=== PATIENT | male | born 1950 | race Caucasian/White ===

== ENCOUNTER 2022-10-02 14:47 | Inpatient (IN) | payer MEDICARE, BC ==
[~2022-10-02] VITALS: Ht 182.9 cm; Wt 95.3 kg
[2022-10-02] MEDS ORDERED: IPRATROPIUM BROMIDE 0.5 MG/2.5 ML NEBU ONE ×2 (14:58→18:44)
[2022-10-02] MEDS ORDERED: ALBUTEROL SULFATE 2.5 MG/3 ML NEBU ONE ×2 (14:58→18:43)
[2022-10-02] MEDS ORDERED: IPRATROPIUM BROMIDE 0.5 MG/2.5 ML NEBU NEB ONE ×2 (15:00→18:45)
[2022-10-02] MEDS ORDERED: ALBUTEROL SULFATE 2.5 MG/3 ML NEBU NEB ONE ×2 (15:00→18:45)
[2022-10-02 15:03] VITALS: O2SAT 93
[2022-10-02 15:19] LABS: BASOPHILS # (AUTO) 0.1 K/UL (0.0-0.2); BASOPHILS % (AUTO) 0.8 % (0.0-2.0); DIFFERENTIAL COMMENT 0; EOSINOPHILS % (AUTO) 0.1 % (0.0-7.0); HEMATOCRIT 39.6 % (36.7-47.1); HEMOGLOBIN 13.2 g/dL (12.5-16.3); LYMPHOCYTES # (AUTO) 0.5 K/uL (0.8-4.8); LYMPHOCYTES % (AUTO) 5.5 % (20.5-51.5); MEAN CORPUSCULAR HEMOGLOBIN 33.1 uug (23.8-33.4); MEAN CORPUSCULAR HGB CONC 33 g/dL (32.5-36.3); MEAN CORPUSCULAR VOLUME 99.8 fL (73.0-96.2); MONOCYTES # (AUTO) 0.7 K/uL (0.1-1.30); MONOCYTES % (AUTO) 7.4 % (0.0-11.0); NEUTROPHILS # (AUTO) 8.1 K/uL (1.8-8.9); NEUTROPHILS % (AUTO) 86.2 % (38.5-71.5); PLATELET COUNT (AUTO) 111 K/uL (152-348); RED BLOOD CELL COUNT(AUTO) 3.97 MIL/uL (4.06-5.63); RED CELL DISTRIBUTION WIDTH 17.6 % (12.1-16.2); WHITE BLOOD COUNT (AUTO) 9.4 K/uL (3.6-10.2)
[2022-10-02] MEDS ORDERED: PANT40TA49 PO (15:28)
[2022-10-02 15:29] VITALS: O2SAT 95
[2022-10-02 15:32] LABS: CREATININE 1.3 mg/dL (0.6-1.3); POTASSIUM 3.4 mmol/L (3.5-5.1)
[2022-10-02] MEDS ORDERED: APIX2.5T PO (15:32)
[2022-10-02] MEDS ORDERED: FAMO40TA7 PO (15:34)
[2022-10-02] MEDS ORDERED: ESCI-9 PO (15:36)
[2022-10-02] MEDS ORDERED: LORA0.5T48 PO (15:37)
[2022-10-02] MEDS ORDERED: OLAN2.5T3 PO (15:38)
[2022-10-02 15:45] LABS: ALBUMIN 3.2 g/dL (3.4-5.0); BILIRUBIN,DIRECT 0.2 mg/dL (0.0-0.2); BILIRUBIN,TOTAL 0.5 mg/dL (0.2-1.0); TOTAL PROTEIN, SERUM 6.9 g/dL (6.4-8.2)
[2022-10-02 15:48] LABS: LACTIC ACID 4.2 mmol/L (0.4-2.0)
[2022-10-02] MEDS ORDERED: AZITHROMYCIN IV 500 MG in IV DEXTROSE 5% 250 ML IV ONE (16:00)
[2022-10-02] MEDS ORDERED: CEFTRIAXONE 1 G in IV DEXTROSE 5% 50 ML IV ONE (16:00)
[2022-10-02] MEDS ORDERED: IV NORMAL SALINE 250 ML IV ONE (16:19)
[2022-10-02] MEDS ORDERED: SWABABLE VALVE TRANSFER SET EA MC ONE (16:19)
[2022-10-02] MEDS ORDERED: IOHEXOL 350 100 ML INFUS..BTL ONE (16:19)
[2022-10-02] MEDS ORDERED: IV NORMAL SALINE 1000 ML BAG IV ONE (16:30)
[2022-10-02 16:56] LABS: *BILIRUBIN,URIN NEGATIVE (NEGATIVE); *BLOOD, URINE NEGATIVE (NEGATIVE); *CLARITY,URINE CLEAR (CLEAR); *COLOR,URINE YELLOW (YELLOW); *KETONES,URINE TRACE (NEGATIVE); *PROTEIN,URINE 1+ (NEGATIVE); *UROBILINOGEN,URINE 0.2 E.U./dl (NORMAL); LEUKOCYTE ESTERASE ,URINE NEGATIVE (NEGATIVE); NITRITE, URINE NEGATIVE (NEGATIVE); PH,URINE 5.5 (5.0-8.0); UGLUCOSE NEGATIVE (NEGATIVE)
[2022-10-02] MEDS ORDERED: REMEDY ESSENTIAL ZINC PASTE 113 GM TP PRN (17:00)
[2022-10-02] MEDS: AZITHROMYCIN IV 500 MG in IV DEXTROSE 5% 250 ML IV SCH (17:00)
[2022-10-02] MEDS ORDERED: CEFTRIAXONE 1 G in IV DEXTROSE 5% 50 ML IV SCH (17:00)
[2022-10-02] MEDS ORDERED: LORAZEPAM 0.5 MG TABLET PO PRN (17:00)
[2022-10-02] MEDS ORDERED: OLANZAPINE 2.5 MG TABLET PO PRN (17:00)
[2022-10-02] MEDS ORDERED: ACETAMINOPHEN 325 MG TABLET PO PRN (17:00)
[2022-10-02] MEDS ORDERED: MAGNESIUM HYDROXIDE 30 ML LIQUID UDC PO PRN (17:00)
[2022-10-02] MEDS ORDERED: ONDANSETRON 4 MG/2 ML VIAL IV PRN (17:00)
[2022-10-02] MEDS ORDERED: CEFTRIAXONE /D5W 50ML IVPB **ER PYXIS IV ONE (17:04)
[2022-10-02] MEDS ORDERED: methylPREDNISolone SOD SUCC 125 MG/2 ML VIAL IV ONE (17:30)
[2022-10-02] MEDS ORDERED: levoFLOXacin 750MG/D5W 150 ML IV ONE ×2 (18:30→19:49)
[2022-10-02] MEDS ORDERED: MEROPENEM 1 G in IV NORMAL SALINE 100 ML IV ONE (18:30)
[2022-10-02 18:45] VITALS: O2SAT 93
[2022-10-02 19:00] VITALS: O2SAT 98
[2022-10-02] MEDS ORDERED: methylPREDNISolone SOD SUCC 125 MG/2 ML VIAL ONE (19:26)
[2022-10-02] MEDS ORDERED: MEROPENEM 1GM/NS 100ML IVPB **ER PYXIS ONLY IV ONE (21:21)
[2022-10-02 22:10] VITALS: BP 137/74; TEMP 99.1; O2SAT 99
[2022-10-03] MEDS: IV NS 1000 ML 1,000 ML IV PRN (01:14)
[2022-10-03] MEDS ORDERED: methylPREDNISolone SOD SUCC 40 MG/ML VIAL IV SCH (02:00)
[2022-10-03 04:00] VITALS: BP 133/72; TEMP 97.8
[2022-10-03 07:31] LABS: BASOPHILS % (AUTO) 0.1 % (0.0-2.0); HEMATOCRIT 35.3 % (36.7-47.1); HEMOGLOBIN 11.9 g/dL (12.5-16.3); LYMPHOCYTES # (AUTO) 0.3 K/uL (0.8-4.8); LYMPHOCYTES % (AUTO) 2.2 % (20.5-51.5); MEAN CORPUSCULAR HEMOGLOBIN 33.2 uug (23.8-33.4); MEAN CORPUSCULAR HGB CONC 34 g/dL (32.5-36.3); MEAN CORPUSCULAR VOLUME 98.7 fL (73.0-96.2); MONOCYTES # (AUTO) 0.5 K/uL (0.1-1.30); MONOCYTES % (AUTO) 4.1 % (0.0-11.0); NEUTROPHILS % (AUTO) 93.6 % (38.5-71.5); PLATELET COUNT (AUTO) 115 K/uL (152-348); RED BLOOD CELL COUNT(AUTO) 3.58 MIL/uL (4.06-5.63); RED CELL DISTRIBUTION WIDTH 17.5 % (12.1-16.2); WHITE BLOOD COUNT (AUTO) 11.8 K/uL (3.6-10.2)
[2022-10-03 07:40] LABS: CALCIUM 8.6 mg/dL (8.5-10.1); MAGNESIUM 1.6 mg/dL (1.8-2.4); PHOSPHOROUS 1.9 mg/dL (2.5-4.9); POTASSIUM 3.9 mmol/L (3.5-5.1)
[2022-10-03 07:43] LABS: DIFFERENTIAL COMMENT 1
[2022-10-03] MEDS ORDERED: APIXABAN 2.5 MG TABLET PO SCH (09:00)
[2022-10-03] MEDS: PANTOPRAZOLE SODIUM 40 MG TABLET.DR PO SCH (09:18)
[2022-10-03] MEDS: ESCITALOPRAM OXALATE 10 MG TABLET PO SCH (09:18)
[2022-10-03] MEDS ORDERED: IPRATROPIUM/ALBUTEROL SULFATE 14.7 GM INHALER INH PRN (09:30)
[2022-10-03] MEDS ORDERED: POTASSIUM PHOSPHATE MM 15 MMOL in IV NORMAL SALINE 250 ML IV ONE (10:00)
[2022-10-03] MEDS: MAGNESIUM SULFATE/D5W 100 ML IV SCH ×2 (10:08→11:10)
[2022-10-03] MEDS ORDERED: ALBUTEROL SULFATE 2.5 MG/ 0.5 ML NEBU NEB PRN (10:30)
[2022-10-03] MEDS ORDERED: IPRATROPIUM BROMIDE 0.5 MG/2.5 ML NEBU NEB PRN (10:30)
[2022-10-03] MEDS ORDERED: APIX5TAB PO (10:33)
[2022-10-03] MEDS: APIXABAN 5 MG TABLET PO SCH ×2 (10:42→21:27)
[2022-10-03] MEDS ORDERED: ONDA8TAB65 PO (11:00)
[2022-10-03 11:24] VITALS: BP 115/63; TEMP 98.1; O2SAT 96
[2022-10-03] MEDS ORDERED: DICY20TA11 PO (11:28)
[2022-10-03 12:59] VITALS: O2SAT 96
[2022-10-03 15:44] VITALS: BP 128/68; TEMP 97.8; O2SAT 100
[2022-10-03] MEDS: AZITHROMYCIN IV 500 MG in IV DEXTROSE 5% 250 ML IV SCH (18:04)
[2022-10-03 20:49] VITALS: BP 124/74; TEMP 98.2; O2SAT 95
[2022-10-03] MEDS: FAMOTIDINE 20 MG TABLET PO SCH (21:26)
[2022-10-03] MEDS: methylPREDNISolone SOD SUCC 40 MG/ML VIAL IV SCH (21:26)
[2022-10-03] MEDS: CEFTRIAXONE 1 G in IV DEXTROSE 5% 50 ML IV SCH (21:26)
[2022-10-04] VITALS: BP 120/73; TEMP 98.1; O2SAT 94
[2022-10-04] MEDS: IV NS 1000 ML 1,000 ML IV PRN ×2 (01:24→16:45)
[2022-10-04 04:17] VITALS: O2SAT 97
[2022-10-04 04:49] VITALS: BP 123/77; TEMP 97.8; O2SAT 96
[2022-10-04] MEDS: PANTOPRAZOLE SODIUM 40 MG TABLET.DR PO SCH (06:07)
[2022-10-04 06:35] LABS: BASOPHILS % (AUTO) 0.1 % (0.0-2.0); HEMOGLOBIN 13.1 g/dL (12.5-16.3); LYMPHOCYTES # (AUTO) 0.8 K/uL (0.8-4.8); LYMPHOCYTES % (AUTO) 6.1 % (20.5-51.5); MEAN CORPUSCULAR HEMOGLOBIN 33.4 uug (23.8-33.4); MEAN CORPUSCULAR HGB CONC 34 g/dL (32.5-36.3); MEAN CORPUSCULAR VOLUME 99.7 fL (73.0-96.2); MONOCYTES # (AUTO) 0.9 K/uL (0.1-1.30); MONOCYTES % (AUTO) 7.4 % (0.0-11.0); NEUTROPHILS # (AUTO) 10.8 K/uL (1.8-8.9); NEUTROPHILS % (AUTO) 86.4 % (38.5-71.5); PLATELET COUNT (AUTO) 158 K/uL (152-348); RED BLOOD CELL COUNT(AUTO) 3.91 MIL/uL (4.06-5.63); RED CELL DISTRIBUTION WIDTH 17.1 % (12.1-16.2); WHITE BLOOD COUNT (AUTO) 12.5 K/uL (3.6-10.2)
[2022-10-04 06:51] LABS: CALCIUM 8.6 mg/dL (8.5-10.1); CREATININE 1.4 mg/dL (0.6-1.3); MAGNESIUM 2.2 mg/dL (1.8-2.4); PHOSPHOROUS 4.1 mg/dL (2.5-4.9); POTASSIUM 4.2 mmol/L (3.5-5.1)
[2022-10-04 06:53] LABS: DIFFERENTIAL COMMENT 1
[2022-10-04 07:24] LABS: LACTIC ACID 3.5 mmol/L (0.4-2.0)
[2022-10-04] MEDS: ESCITALOPRAM OXALATE 10 MG TABLET PO SCH (08:47)
[2022-10-04] MEDS: methylPREDNISolone SOD SUCC 40 MG/ML VIAL IV SCH ×2 (08:47→20:57)
[2022-10-04] MEDS: APIXABAN 5 MG TABLET PO SCH ×2 (09:07→20:55)
[2022-10-04 09:10] LABS: BILIRUBIN,DIRECT 0.1 mg/dL (0.0-0.2); BILIRUBIN,TOTAL 0.3 mg/dL (0.2-1.0)
[2022-10-04 11:19] VITALS: BP 120/75; TEMP 98.4; O2SAT 96
[2022-10-04 15:05] VITALS: BP 141/79; TEMP 98.4; O2SAT 99
[2022-10-04] MEDS: AZITHROMYCIN IV 500 MG in IV DEXTROSE 5% 250 ML IV SCH (16:45)
[2022-10-04 20:00] VITALS: BP 145/77; TEMP 97.9; O2SAT 98
[2022-10-04] MEDS: FAMOTIDINE 20 MG TABLET PO SCH (20:57)
[2022-10-04] MEDS: CEFTRIAXONE 1 G in IV DEXTROSE 5% 50 ML IV SCH (20:57)
[2022-10-05] VITALS (11 sets, daily range): BP systolic 130–142; BP diastolic 66–85; TEMP 97.6–98.7; O2SAT 93–98
[2022-10-05] MEDS: IV NS 1000 ML 1,000 ML IV PRN (04:54)
[2022-10-05] MEDS: PANTOPRAZOLE SODIUM 40 MG TABLET.DR PO SCH (06:30)
[2022-10-05 07:01] LABS: CALCIUM 8.6 mg/dL (8.5-10.1); MAGNESIUM 2.2 mg/dL (1.8-2.4); PHOSPHOROUS 3.6 mg/dL (2.5-4.9); POTASSIUM 4.4 mmol/L (3.5-5.1)
[2022-10-05 07:02] LABS: BASOPHILS % (AUTO) 0.1 % (0.0-2.0); EOSINOPHILS % (AUTO) 0.1 % (0.0-7.0); HEMATOCRIT 34.4 % (36.7-47.1); HEMOGLOBIN 11.8 g/dL (12.5-16.3); LYMPHOCYTES # (AUTO) 0.5 K/uL (0.8-4.8); LYMPHOCYTES % (AUTO) 6.6 % (20.5-51.5); MEAN CORPUSCULAR HEMOGLOBIN 33.7 uug (23.8-33.4); MEAN CORPUSCULAR HGB CONC 34 g/dL (32.5-36.3); MEAN CORPUSCULAR VOLUME 98.3 fL (73.0-96.2); MONOCYTES # (AUTO) 0.4 K/uL (0.1-1.30); MONOCYTES % (AUTO) 5.9 % (0.0-11.0); NEUTROPHILS # (AUTO) 6.6 K/uL (1.8-8.9); NEUTROPHILS % (AUTO) 87.3 % (38.5-71.5); PLATELET COUNT (AUTO) 149 K/uL (152-348); RED BLOOD CELL COUNT(AUTO) 3.49 MIL/uL (4.06-5.63); RED CELL DISTRIBUTION WIDTH 16.2 % (12.1-16.2); WHITE BLOOD COUNT (AUTO) 7.5 K/uL (3.6-10.2)
[2022-10-05 07:04] LABS: ALBUMIN 2.8 g/dL (3.4-5.0); BILIRUBIN,DIRECT 0.1 mg/dL (0.0-0.2); BILIRUBIN,TOTAL 0.3 mg/dL (0.2-1.0); C-REACTIVE PROTEIN 4.5 mg/dL (0.0-0.9); TOTAL PROTEIN, SERUM 6.5 g/dL (6.4-8.2)
[2022-10-05 07:10] LABS: DIFFERENTIAL COMMENT 1
[2022-10-05 07:47] LABS: HIV-1 p24 ANTIGEN NON REACTIVE (NONREACTIVE); HIV-1/2 ANTIBODY NON REACTIVE (NONREACTIVE)
[2022-10-05] MEDS: methylPREDNISolone SOD SUCC 40 MG/ML VIAL IV SCH ×2 (09:39→20:51)
[2022-10-05] MEDS: ESCITALOPRAM OXALATE 10 MG TABLET PO SCH (09:40)
[2022-10-05] MEDS: APIXABAN 5 MG TABLET PO SCH ×2 (09:40→21:24)
[2022-10-05] MEDS: AZITHROMYCIN IV 500 MG in IV DEXTROSE 5% 250 ML IV SCH (18:16)
[2022-10-05] MEDS: CEFTRIAXONE 1 G in IV DEXTROSE 5% 50 ML IV SCH (20:44)
[2022-10-05] MEDS: FAMOTIDINE 20 MG TABLET PO SCH (20:52)
[2022-10-06 04:00] VITALS: BP 134/80; TEMP 97.8; O2SAT 94
[2022-10-06] MEDS: PANTOPRAZOLE SODIUM 40 MG TABLET.DR PO SCH (06:04)
[2022-10-06 07:00] LABS: HEMATOCRIT 34.7 % (36.7-47.1); LYMPHOCYTES # (AUTO) 0.5 K/uL (0.8-4.8); LYMPHOCYTES % (AUTO) 7.4 % (20.5-51.5); MEAN CORPUSCULAR HEMOGLOBIN 33.9 uug (23.8-33.4); MEAN CORPUSCULAR HGB CONC 35 g/dL (32.5-36.3); MEAN CORPUSCULAR VOLUME 97.7 fL (73.0-96.2); MONOCYTES # (AUTO) 0.7 K/uL (0.1-1.30); MONOCYTES % (AUTO) 10.9 % (0.0-11.0); NEUTROPHILS # (AUTO) 5.4 K/uL (1.8-8.9); NEUTROPHILS % (AUTO) 81.7 % (38.5-71.5); PLATELET COUNT (AUTO) 162 K/uL (152-348); RED BLOOD CELL COUNT(AUTO) 3.55 MIL/uL (4.06-5.63); RED CELL DISTRIBUTION WIDTH 16.4 % (12.1-16.2); WHITE BLOOD COUNT (AUTO) 6.7 K/uL (3.6-10.2)
[2022-10-06 07:18] LABS: DIFFERENTIAL COMMENT 1
[2022-10-06 07:19] LABS: CALCIUM 8.6 mg/dL (8.5-10.1); CREATININE 0.9 mg/dL (0.6-1.3); MAGNESIUM 2.1 mg/dL (1.8-2.4); PHOSPHOROUS 3.8 mg/dL (2.5-4.9); POTASSIUM 4.1 mmol/L (3.5-5.1)
[2022-10-06 08:00] VITALS: BP 147/88; TEMP 97.9; O2SAT 93
[2022-10-06] MEDS: ESCITALOPRAM OXALATE 10 MG TABLET PO SCH (08:39)
[2022-10-06] MEDS: methylPREDNISolone SOD SUCC 40 MG/ML VIAL IV SCH ×2 (08:39→20:45)
[2022-10-06] MEDS: APIXABAN 5 MG TABLET PO SCH ×2 (08:40→21:24)
[2022-10-06 13:00] VITALS: BP 152/84; TEMP 98.2; O2SAT 94
[2022-10-06 14:40] VITALS: O2SAT 94
[2022-10-06 16:00] VITALS: BP 149/88; TEMP 98.8; O2SAT 96
[2022-10-06] MEDS: AZITHROMYCIN IV 500 MG in IV DEXTROSE 5% 250 ML IV SCH (16:43)
[2022-10-06] MEDS: CEFTRIAXONE 1 G in IV DEXTROSE 5% 50 ML IV SCH (20:43)
[2022-10-06] MEDS: FAMOTIDINE 20 MG TABLET PO SCH (20:45)
[2022-10-06 20:50] VITALS: BP 145/85; TEMP 98.7; O2SAT 95
[2022-10-07 02:25] VITALS: O2SAT 94
[2022-10-07 05:44] VITALS: BP 142/83; TEMP 97.7; O2SAT 100
[2022-10-07 08:20] VITALS: BP 131/83; TEMP 97.4; O2SAT 92
[2022-10-07] MEDS: methylPREDNISolone SOD SUCC 40 MG/ML VIAL IV SCH (08:37)
[2022-10-07] MEDS: ESCITALOPRAM OXALATE 10 MG TABLET PO SCH (08:37)
[2022-10-07] MEDS: APIXABAN 5 MG TABLET PO SCH (08:38)
[2022-10-07 12:00] VITALS: BP 125/83; TEMP 98.5; O2SAT 92
[2022-10-07] MEDS ORDERED: SULF1TAB48 PO (12:44)
[2022-10-07] MEDS ORDERED: PRED20TA PO (12:49)
[2022-10-07] MEDS ORDERED: ALBU18HF2 INH (12:49)
[2022-10-07] MEDS ORDERED: SULFAMETH/TRIMETH 800/160 MG TABLET PO ONE (13:00)
[2022-10-08] MEDS ORDERED: methylPREDNISolone SOD SUCC 40 MG/ML VIAL IV SCH (09:00)
== END 2022-10-07 15:30 | disposition home or self-care (01) | DRG 871 ==
LOC: ER 14:47 → TELE3 17:04 → MEDSURG3 10-04 12:02
PROVIDERS: ADMIT Nurse Practitioner Acute Care; ATTEND Nurse Practitioner Acute Care
DX: A41.9 Sepsis, unspecified organism (principal); J15.9 Unspecified bacterial pneumonia; J96.01 Acute respiratory failure with hypoxia; C15.9 Malignant neoplasm of esophagus, unspecified; E44.1 Mild protein-calorie malnutrition; J90 Pleural effusion, not elsewhere classified; E87.20 Acidosis, unspecified; N39.0 Urinary tract infection, site not specified; Z16.19 Resistance to other specified beta lactam antibiotics; Z16.24 Resistance to multiple antibiotics; J98.11 Atelectasis; N17.9 Acute kidney failure, unspecified; Z79.01 Long term (current) use of anticoagulants; Z79.899 Other long term (current) drug therapy; K21.9 Gastro-esophageal reflux disease without esophagitis; Z86.711 Personal history of pulmonary embolism; Z90.49 Acquired absence of other specified parts of digestive tract; E87.6 Hypokalemia; D64.9 Anemia, unspecified; E88.09 Other disorders of plasma-protein metabolism, not elsewhere classified; R00.0 Tachycardia, unspecified; J45.909 Unspecified asthma, uncomplicated; B96.20 Unspecified Escherichia coli [E. coli] as the cause of diseases classified elsewhere; Z20.822 Contact with and (suspected) exposure to COVID-19; K22.89 Other specified disease of esophagus; Z87.891 Personal history of nicotine dependence; Z92.21 Personal history of antineoplastic chemotherapy; Z82.49 Family history of ischemic heart disease and other diseases of the circulatory system; T50.8X5A Adverse effect of diagnostic agents, initial encounter; Y92.238 Other place in hospital as the place of occurrence of the external cause
CPT/HCPCS: 36415; 71045; 71275; 83605; 83735; 84100; 85025; 86140; 86803; 87040; 87806; 93005; 94640; G0378; J0456; J0696; J1956; J2185; J2920; J2930; J3475; J3490; J3590; J7040; J7050; Q9967

== ENCOUNTER 2023-07-12 16:23 | Inpatient (IN) | payer MEDICARE, BC ==
[~2023-07-12] VITALS: Ht 182.9 cm; Wt 85.4 kg
[~2023-07-12 16:23] MED LIST: ALBU18HF2 INH; APIX5TAB PO; DICY20TA11 PO; ESCI-9 PO; FAMO40TA7 PO; LORA0.5T48 PO; OLAN2.5T3 PO; ONDA8TAB65 PO; PANT40TA49 PO; PRED20TA PO; SULF1TAB48 PO
[2023-07-12] MEDS ORDERED: methylPREDNISolone SOD SUCC 125 MG/2 ML VIAL IV ONE (16:45)
[2023-07-12] MEDS ORDERED: TAMS-3 PO (16:46)
[2023-07-12] MEDS ORDERED: ALPR0.255 PO ×2 (16:46→20:10)
[2023-07-12] MEDS ORDERED: BUPR150T10 (16:46)
[2023-07-12] MEDS ORDERED: ONDA4TAB11 SL (16:46)
[2023-07-12] MEDS ORDERED: GABA-532 PO (16:46)
[2023-07-12] MEDS: ALBUTEROL SULFATE 2.5 MG/3 ML NEBU NEB ONE (16:59)
[2023-07-12] MEDS: IPRATROPIUM BROMIDE 0.5 MG/2.5 ML NEBU NEB ONE (16:59)
[2023-07-12] MEDS ORDERED: IPRATROPIUM BROMIDE 0.5 MG/2.5 ML NEBU ONE (17:02)
[2023-07-12] MEDS ORDERED: ALBUTEROL SULFATE 2.5 MG/3 ML NEBU ONE (17:02)
[2023-07-12 17:20] VITALS: O2SAT 97
[2023-07-12 17:22] LABS: BASOPHILS % (AUTO) 0.2 % (0.0-2.0); EOSINOPHILS % (AUTO) 0.2 % (0.0-7.0); HEMATOCRIT 35.2 % (36.7-47.1); HEMOGLOBIN 11.5 g/dL (12.5-16.3); LYMPHOCYTES # (AUTO) 0.3 K/uL (0.8-4.8); LYMPHOCYTES % (AUTO) 1.9 % (20.5-51.5); MEAN CORPUSCULAR HEMOGLOBIN 25.4 uug (23.8-33.4); MEAN CORPUSCULAR HGB CONC 33 g/dL (32.5-36.3); MEAN CORPUSCULAR VOLUME 77.6 fL (73.0-96.2); MONOCYTES # (AUTO) 0.2 K/uL (0.1-1.30); MONOCYTES % (AUTO) 1.7 % (0.0-11.0); NEUTROPHILS # (AUTO) 13.3 K/uL (1.8-8.9); PLATELET COUNT (AUTO) 327 K/uL (152-348); RED BLOOD CELL COUNT(AUTO) 4.53 MIL/uL (4.06-5.63); RED CELL DISTRIBUTION WIDTH 16.7 % (12.1-16.2); WHITE BLOOD COUNT (AUTO) 13.8 K/uL (3.6-10.2)
[2023-07-12] MEDS ORDERED: ONDANSETRON 4 MG/2 ML VIAL ONE (17:23)
[2023-07-12] MEDS ORDERED: MAGNESIUM SULFATE 1 GM/2 ML VIAL ONE (17:24)
[2023-07-12] MEDS ORDERED: MAGNESIUM SULFATE/D5W 100 ML ONE (17:24)
[2023-07-12 17:25] LABS: DIFFERENTIAL COMMENT 1
[2023-07-12 17:31] LABS: CALCIUM 9.6 mg/dL (8.5-10.1); CARBON DIOXIDE 26 mmol/L (21-32); CHLORIDE 96 mmol/L (98-107); CREATININE 1.8 mg/dL (0.6-1.3); GLUCOSE 316 mg/dL (74-106); POTASSIUM 3.7 mmol/L (3.5-5.1); SODIUM SERUM 135 mmol/L (136-145); UREA NITROGEN, BLOOD 30 mg/dL (7-18)
[2023-07-12] MEDS: MAGNESIUM SULFATE 2 GM in IV DEXTROSE 5% 100 ML IV ONE (17:42)
[2023-07-12] MEDS: ONDANSETRON INJ 8 MG in IV NORMAL SALINE 50 ML IV PRN (17:43)
[2023-07-12] MEDS: IV NS 1000 ML 1,000 ML IV ONE (17:43)
[2023-07-12 17:45] LABS: ALANINE AMINOTRANSFERASE 22 U/L (16-63); ALBUMIN 2.5 g/dL (3.4-5.0); ALKALINE PHOSPHATASE 264 U/L (50-136); ASPARTATE AMINOTRANSFERASE 23 U/L (15-37); BILIRUBIN,DIRECT 0.8 mg/dL (0.0-0.2); BILIRUBIN,TOTAL 1.2 mg/dL (0.2-1.0); NT-PRO BNP 448 pg/mL (0-125); TOTAL PROTEIN, SERUM 7.7 g/dL (6.4-8.2)
[2023-07-12 17:55] LABS: LACTIC ACID 3.3 mmol/L (0.4-2.0)
[2023-07-12 18:00] VITALS: O2SAT 100; O2SAT 98
[2023-07-12] MEDS: VANCOMYCIN IV 1,000 MG in IV DEXTROSE 5% 250 ML IV ONE (18:00)
[2023-07-12] MEDS ORDERED: PIPERACILLIN/TAZO 4.5 GM VIAL IV ONE (18:15)
[2023-07-12] MEDS: PIPERACILLIN SODIUM/TAZOBACTAM 4.5 G in IV DEXTROSE 5% 50 ML IV SCH (18:27)
[2023-07-12] MEDS ORDERED: REMEDY ESSENTIAL ZINC PASTE 113 GM TP PRN (19:15)
[2023-07-12] MEDS: ENOXAPARIN SODIUM 80 MG/0.8 ML DISP.SYRIN SQ ONE ×2 (19:15→23:56)
[2023-07-12] MEDS ORDERED: IPRATROPIUM BROMIDE 0.5 MG/2.5 ML NEBU NEB PRN (19:15)
[2023-07-12] MEDS ORDERED: ALBUTEROL SULFATE 2.5 MG/3 ML NEBU NEB PRN (19:15)
[2023-07-12] MEDS ORDERED: ACETAMINOPHEN 325 MG TABLET PO PRN (19:15)
[2023-07-12] MEDS ORDERED: NOREPINEPHRINE BITARTRATE 4 MG/4 ML VIAL IV ONE (19:47)
[2023-07-12] MEDS: NOREPINEPHRINE BITARTRATE 8 MG in IV NORMAL SALINE 242 ML IV PRN (19:51)
[2023-07-12] MEDS ORDERED: BUPR-96 PO (20:10)
[2023-07-12] MEDS ORDERED: ESCI20TA PO (20:10)
[2023-07-12 21:55] VITALS: O2SAT 98
[2023-07-12 22:13] VITALS: BP 92/57; TEMP 98; O2SAT 99
[2023-07-12] MEDS ORDERED: DEXTROSE 50% 50 ML DISP.SYRIN IV PRN (22:45)
[2023-07-12] MEDS: NOREPINEPHRINE BITARTRATE 4 MG/4 ML VIAL IV ONE (22:53)
[2023-07-12 23:00] VITALS: BP 106/63; O2SAT 99
[2023-07-12] MEDS ORDERED: MEROPENEM 1GM/NS 100ML IVPB **ER PYXIS ONLY IV ONE (23:03)
[2023-07-12] MEDS ORDERED: INSULIN REGULAR, HUMAN 300 UNIT/3 ML VIAL ONE (23:04)
[2023-07-12] MEDS: IV NS 1000 ML 1,000 ML IV PRN (23:04)
[2023-07-12] MEDS: MEROPENEM 1 G in IV NORMAL SALINE 100 ML IV SCH (23:15)
[2023-07-12] MEDS: INSULIN REGULAR, HUMAN 300 UNIT/3 ML VIAL SQ PRN (23:18)
[2023-07-12] MEDS: HYDROCORTISONE SOD SUCCINATE 100 MG/2 ML VIAL IV SCH (23:40)
[2023-07-13] VITALS (89 sets, daily range): BP systolic 68–167; BP diastolic 49–107; TEMP 97.5–99; O2SAT 95–100
[2023-07-13] MEDS ORDERED: VANCOMYCIN IV 200 ML ONE (00:02)
[2023-07-13] MEDS: BLOOD SUGAR DIAGNOSTIC 1 EACH STRIP VI SCH ×3 (00:03→11:56)
[2023-07-13] MEDS: VANCOMYCIN IV 1,000 MG in IV NORMAL SALINE 250 ML IV ONE (00:08)
[2023-07-13] MEDS: NOREPINEPHRINE BITARTRATE 8 MG in IV NORMAL SALINE 242 ML IV PRN (00:33)
[2023-07-13] MEDS: NOREPINEPHRINE BITARTRATE 4 MG/4 ML VIAL IV ONE ×2 (01:45→05:19)
[2023-07-13] MEDS: INSULIN REGULAR, HUMAN 300 UNIT/3 ML VIAL SQ ONE (01:52)
[2023-07-13] MEDS ORDERED: DEXTROSE 50% 50 ML DISP.SYRIN IV PRN ×2 (05:00→10:45)
[2023-07-13 05:19] LABS: BASOPHILS % (AUTO) 0.2 % (0.0-2.0); HEMOGLOBIN 10.4 g/dL (12.5-16.3); LYMPHOCYTES # (AUTO) 0.2 K/uL (0.8-4.8); LYMPHOCYTES % (AUTO) 0.7 % (20.5-51.5); MEAN CORPUSCULAR HEMOGLOBIN 25.2 uug (23.8-33.4); MEAN CORPUSCULAR HGB CONC 32 g/dL (32.5-36.3); MEAN CORPUSCULAR VOLUME 80.2 fL (73.0-96.2); MONOCYTES # (AUTO) 0.7 K/uL (0.1-1.30); MONOCYTES % (AUTO) 2.8 % (0.0-11.0); NEUTROPHILS # (AUTO) 25.8 K/uL (1.8-8.9); NEUTROPHILS % (AUTO) 96.3 % (38.5-71.5); PLATELET COUNT (AUTO) 485 K/uL (152-348); RED BLOOD CELL COUNT(AUTO) 4.12 MIL/uL (4.06-5.63); RED CELL DISTRIBUTION WIDTH 16.9 % (12.1-16.2); WHITE BLOOD COUNT (AUTO) 26.7 K/uL (3.6-10.2)
[2023-07-13] MEDS: INSULIN REGULAR, HUMAN 300 UNIT/3 ML VIAL SQ PRN ×2 (05:21→12:02)
[2023-07-13 05:34] LABS: DIFFERENTIAL COMMENT 1
[2023-07-13 05:54] LABS: THYROID STIMULATING HORMONE 3.216 mIU/mL (0.358-3.740)
[2023-07-13 06:02] LABS: CALCIUM 8.2 mg/dL (8.5-10.1); CREATININE 1.8 mg/dL (0.6-1.3); MAGNESIUM 2.1 mg/dL (1.8-2.4); PHOSPHOROUS 3.4 mg/dL (2.5-4.9); POTASSIUM 4.7 mmol/L (3.5-5.1)
[2023-07-13] MEDS ORDERED: INSULIN REGULAR, HUMAN 300 UNIT/3 ML VIAL SQ SCH (07:30)
[2023-07-13] MEDS: PANTOPRAZOLE SODIUM 40 MG TABLET.DR PO SCH (07:36)
[2023-07-13] MEDS: APIXABAN 5 MG TABLET PO SCH (09:22)
[2023-07-13] MEDS: MEROPENEM 1 G in IV NORMAL SALINE 100 ML IV SCH (11:13)
[2023-07-13 11:24] LABS: *BILIRUBIN,URIN NEGATIVE (NEGATIVE); *BLOOD, URINE NEGATIVE (NEGATIVE); *CLARITY,URINE CLEAR (CLEAR); *COLOR,URINE YELLOW (YELLOW); *KETONES,URINE NEGATIVE (NEGATIVE); *PROTEIN,URINE TRACE (NEGATIVE); *UROBILINOGEN,URINE 0.2 E.U./dl (NORMAL); LEUKOCYTE ESTERASE ,URINE NEGATIVE (NEGATIVE); NITRITE, URINE NEGATIVE (NEGATIVE); PH,URINE 5.5 (5.0-8.0); UGLUCOSE 2+ (NEGATIVE)
[2023-07-13 11:50] LABS: BACTERIA,URINE NONE SEEN /HPF (NONE SEEN); RBC,URINE NONE SEEN /HPF (0-3); SQUAMOUS EPITHELIAL CELL,UR FEW /HPF (NONE SEEN); WBC,URINE 0-3 /HPF (0-3)
[2023-07-13] MEDS: VANCOMYCIN IV 1,250 MG in IV DEXTROSE 5% 250 ML IV SCH (12:03)
[2023-07-13] MEDS ORDERED: [UNRECOGNIZED DRUG - OTHER] GT PRN (12:15)
[2023-07-13] MEDS ORDERED: Medication Not On Formulary EA (Escitalopram Oxalate (Lexapro) 20 MG) PO SCH (13:00)
[2023-07-13] MEDS ORDERED: ALPRAZOLAM 0.25 MG TABLET PO PRN (13:00)
[2023-07-13] MEDS: buPROPion XL 150 MG TAB.SR.24H PO SCH (13:04)
[2023-07-13] MEDS: ESCITALOPRAM OXALATE 10 MG TABLET PO SCH (13:04)
[2023-07-13] MEDS: HYDROCORTISONE SOD SUCCINATE 100 MG/2 ML VIAL IV SCH (13:31)
[2023-07-13] MEDS: ONDANSETRON 4 MG/2 ML VIAL IV PRN (15:55)
[2023-07-13] MEDS: IBUPROFEN 200 MG TABLET PO PRN (16:28)
[2023-07-13 17:56] LABS: *CREATININE,URINE 40.1 mg/dL (30-125); *URINE TOTAL PROTEIN RANDOM 33.2 mg/dL (<150/24HR)
[2023-07-13] MEDS: ONDANSETRON HCL 4 MG TABLET PO SCH (19:59)
[2023-07-13] MEDS: DOXYCYCLINE HYCLATE IV 100 MG in IV DEXTROSE 5% 100 ML IV SCH (20:27)
[2023-07-13] MEDS: FAMOTIDINE 20 MG TABLET PO SCH (22:41)
[2023-07-13] MEDS: TAMSULOSIN HCL 0.4 MG CAP.SR.24H PO SCH (22:41)
[2023-07-13] MEDS: IBUPROFEN 400 MG TABLET PO PRN (23:16)
[2023-07-14] VITALS (58 sets, daily range): BP systolic 85–117; BP diastolic 52–76; TEMP 97.7–98.7; O2SAT 94–99
[2023-07-14 05:41] LABS: BASOPHILS % (AUTO) 0.1 % (0.0-2.0); HEMATOCRIT 26.2 % (36.7-47.1); HEMOGLOBIN 8.4 g/dL (12.5-16.3); LYMPHOCYTES # (AUTO) 0.6 K/uL (0.8-4.8); MEAN CORPUSCULAR HEMOGLOBIN 25.1 uug (23.8-33.4); MEAN CORPUSCULAR HGB CONC 32 g/dL (32.5-36.3); MEAN CORPUSCULAR VOLUME 77.9 fL (73.0-96.2); MONOCYTES # (AUTO) 0.9 K/uL (0.1-1.30); MONOCYTES % (AUTO) 5.7 % (0.0-11.0); NEUTROPHILS # (AUTO) 14.3 K/uL (1.8-8.9); NEUTROPHILS % (AUTO) 90.2 % (38.5-71.5); PLATELET COUNT (AUTO) 318 K/uL (152-348); RED BLOOD CELL COUNT(AUTO) 3.37 MIL/uL (4.06-5.63); RED CELL DISTRIBUTION WIDTH 16.9 % (12.1-16.2); WHITE BLOOD COUNT (AUTO) 15.9 K/uL (3.6-10.2)
[2023-07-14 06:04] LABS: ALBUMIN 1.6 g/dL (3.4-5.0); BILIRUBIN,TOTAL 0.3 mg/dL (0.2-1.0); CALCIUM 7.9 mg/dL (8.5-10.1); CREATININE 0.9 mg/dL (0.6-1.3); PHOSPHOROUS 1.7 mg/dL (2.5-4.9); POTASSIUM 4.1 mmol/L (3.5-5.1); TOTAL PROTEIN, SERUM 5.8 g/dL (6.4-8.2)
[2023-07-14 07:07] LABS: DIFFERENTIAL COMMENT 1
[2023-07-14] MEDS ORDERED: METOPROLOL TARTRATE 5 MG/5 ML VIAL IVP PRN (14:00)
[2023-07-14] MEDS ORDERED: OLANZAPINE 10 MG VIAL IM ONE (14:00)
[2023-07-14] MEDS: MEROPENEM 1 G in IV NORMAL SALINE 100 ML IV SCH (14:04)
[2023-07-14] MEDS: NEUTRA PHOS PACKET PO ONE (15:43)
[2023-07-14] MEDS: FAMOTIDINE 20 MG TABLET PO SCH (20:22)
[2023-07-15] VITALS (20 sets, daily range): BP systolic 109–137; BP diastolic 61–117; TEMP 97.4–98.3; O2SAT 95–98
[2023-07-15 05:31] LABS: BASOPHILS % (AUTO) 0.2 % (0.0-2.0); HEMATOCRIT 25.9 % (36.7-47.1); HEMOGLOBIN 8.4 g/dL (12.5-16.3); LYMPHOCYTES # (AUTO) 0.7 K/uL (0.8-4.8); LYMPHOCYTES % (AUTO) 6.7 % (20.5-51.5); MEAN CORPUSCULAR HEMOGLOBIN 25.3 uug (23.8-33.4); MEAN CORPUSCULAR HGB CONC 33 g/dL (32.5-36.3); MEAN CORPUSCULAR VOLUME 77.7 fL (73.0-96.2); MONOCYTES # (AUTO) 0.5 K/uL (0.1-1.30); MONOCYTES % (AUTO) 4.4 % (0.0-11.0); NEUTROPHILS # (AUTO) 9.6 K/uL (1.8-8.9); NEUTROPHILS % (AUTO) 88.7 % (38.5-71.5); PLATELET COUNT (AUTO) 310 K/uL (152-348); RED BLOOD CELL COUNT(AUTO) 3.33 MIL/uL (4.06-5.63); RED CELL DISTRIBUTION WIDTH 16.8 % (12.1-16.2); WHITE BLOOD COUNT (AUTO) 10.8 K/uL (3.6-10.2)
[2023-07-15 05:46] LABS: BILIRUBIN,TOTAL 0.2 mg/dL (0.2-1.0); CALCIUM 8.1 mg/dL (8.5-10.1); CREATININE 0.7 mg/dL (0.6-1.3); MAGNESIUM 1.8 mg/dL (1.8-2.4); PHOSPHOROUS 1.9 mg/dL (2.5-4.9); TOTAL PROTEIN, SERUM 5.6 g/dL (6.4-8.2)
[2023-07-15 06:07] LABS: ALBUMIN 1.5 g/dL (3.4-5.0)
[2023-07-15 06:11] LABS: DIFFERENTIAL COMMENT 1
[2023-07-15] MEDS: VANCOMYCIN IV 1,250 MG in IV DEXTROSE 5% 250 ML IV SCH (07:14)
[2023-07-15 08:06] LABS: PTH, INTACT 17 pg/mL (15-65)
[2023-07-15] MEDS: NEUTRA PHOS PACKET GT ONE (16:37)
[2023-07-16] VITALS (7 sets, daily range): BP systolic 128–147; BP diastolic 62–86; TEMP 97.2–98.6; O2SAT 96–99
[2023-07-16 07:17] LABS: BASOPHILS # (AUTO) 0.2 K/UL (0.0-0.2); BASOPHILS % (AUTO) 2.1 % (0.0-2.0); EOSINOPHILS % (AUTO) 0.4 % (0.0-7.0); HEMATOCRIT 28.4 % (36.7-47.1); HEMOGLOBIN 9.4 g/dL (12.5-16.3); LYMPHOCYTES # (AUTO) 0.6 K/uL (0.8-4.8); LYMPHOCYTES % (AUTO) 6.6 % (20.5-51.5); MEAN CORPUSCULAR HEMOGLOBIN 25.5 uug (23.8-33.4); MEAN CORPUSCULAR HGB CONC 33 g/dL (32.5-36.3); MEAN CORPUSCULAR VOLUME 77.3 fL (73.0-96.2); MONOCYTES # (AUTO) 0.5 K/uL (0.1-1.30); MONOCYTES % (AUTO) 6.3 % (0.0-11.0); NEUTROPHILS # (AUTO) 7.2 K/uL (1.8-8.9); NEUTROPHILS % (AUTO) 84.6 % (38.5-71.5); PLATELET COUNT (AUTO) 313 K/uL (152-348); RED BLOOD CELL COUNT(AUTO) 3.67 MIL/uL (4.06-5.63); RED CELL DISTRIBUTION WIDTH 16.4 % (12.1-16.2); WHITE BLOOD COUNT (AUTO) 8.5 K/uL (3.6-10.2)
[2023-07-16 07:27] LABS: DIFFERENTIAL COMMENT 1
[2023-07-16 07:29] LABS: ALBUMIN 1.7 g/dL (3.4-5.0); BILIRUBIN,TOTAL 0.3 mg/dL (0.2-1.0); CALCIUM 8.3 mg/dL (8.5-10.1); CREATININE 0.7 mg/dL (0.6-1.3); MAGNESIUM 1.7 mg/dL (1.8-2.4); PHOSPHOROUS 2.6 mg/dL (2.5-4.9); TOTAL PROTEIN, SERUM 5.8 g/dL (6.4-8.2)
[2023-07-16] MEDS: MAGNESIUM SULFATE/D5W 100 ML IV SCH (12:23)
[2023-07-16] MEDS: HYDROCORTISONE SOD SUCCINATE 100 MG/2 ML VIAL IV SCH (20:32)
[2023-07-17 00:06] VITALS: BP 136/78; TEMP 97.9; O2SAT 96
[2023-07-17 05:10] VITALS: BP 149/86; TEMP 97.9; O2SAT 96
[2023-07-17 05:38] LABS: *OCCULT BLOOD STOOL POSITIVE (NEGATIVE)
[2023-07-17 07:38] LABS: BASOPHILS % (AUTO) 0.2 % (0.0-2.0); EOSINOPHILS % (AUTO) 0.2 % (0.0-7.0); HEMATOCRIT 27.7 % (36.7-47.1); HEMOGLOBIN 9.3 g/dL (12.5-16.3); LYMPHOCYTES % (AUTO) 12.3 % (20.5-51.5); MEAN CORPUSCULAR HEMOGLOBIN 25.7 uug (23.8-33.4); MEAN CORPUSCULAR HGB CONC 34 g/dL (32.5-36.3); MEAN CORPUSCULAR VOLUME 76.5 fL (73.0-96.2); MONOCYTES # (AUTO) 0.8 K/uL (0.1-1.30); MONOCYTES % (AUTO) 9.4 % (0.0-11.0); NEUTROPHILS # (AUTO) 6.4 K/uL (1.8-8.9); NEUTROPHILS % (AUTO) 77.9 % (38.5-71.5); PLATELET COUNT (AUTO) 353 K/uL (152-348); RED BLOOD CELL COUNT(AUTO) 3.62 MIL/uL (4.06-5.63); RED CELL DISTRIBUTION WIDTH 16.1 % (12.1-16.2); WHITE BLOOD COUNT (AUTO) 8.3 K/uL (3.6-10.2)
[2023-07-17 07:42] LABS: DIFFERENTIAL COMMENT 1
[2023-07-17 07:56] LABS: ALBUMIN 1.6 g/dL (3.4-5.0); BILIRUBIN,TOTAL 0.2 mg/dL (0.2-1.0); CREATININE 0.7 mg/dL (0.6-1.3); MAGNESIUM 1.9 mg/dL (1.8-2.4); PHOSPHOROUS 2.6 mg/dL (2.5-4.9); POTASSIUM 3.6 mmol/L (3.5-5.1); TOTAL PROTEIN, SERUM 5.6 g/dL (6.4-8.2)
[2023-07-17 08:05] VITALS: BP 130/77; TEMP 97.4; O2SAT 97
[2023-07-17 10:13] LABS: A/G RATIO 0.6 (0.7-1.7); ALBUMIN 1.9 g/dL (2.9-4.4); ALPHA-1-GLOBULIN 0.4 g/dL (0.0-0.4); ALPHA-2-GLOBULIN 0.9 g/dL (0.4-1.0); BETA GLOBULIN 0.9 g/dL (0.7-1.3); GAMMA GLOBULIN 0.8 g/dL (0.4-1.8); M-SPIKE Not Observed g/dL (Not Observed)
[2023-07-17] MEDS: FUROSEMIDE 20 MG/2 ML VIAL IV ONE (11:06)
[2023-07-17] MEDS: SOD FERRIC GLUC COMPLX/SUCROSE 125 MG in IV NORMAL SALINE 100 ML IV ONE (11:17)
[2023-07-17 12:06] VITALS: BP 142/77; TEMP 97.3; O2SAT 97
[2023-07-17 14:56] VITALS: BP 119/76; TEMP 97.5; O2SAT 96
[2023-07-17] MEDS ORDERED: DOXY100T2 PO (16:31)
[2023-07-17] MEDS ORDERED: APIX2.5T PO (16:31)
[2023-07-17] MEDS ORDERED: METH4TAB3 PO (16:31)
[2023-07-17] MEDS ORDERED: CEFTRIAXONE 1 G in IV DEXTROSE 5% 50 ML IV SCH (22:00)
[2023-07-18 03:12] LABS: HEPATITIS A AB, IgM Negative (Negative); HEPATITIS A AB, TOTAL Negative (Negative); HEPATITIS B CORE AB, IgM Negative (Negative); HEPATITIS B SURFACE AG Negative (Negative); HEPATITIS Be ANTIGEN Negative (Negative)
== END 2023-07-17 18:00 | disposition home health service (06) | DRG 871 ==
LOC: ER 16:24 → CCU 19:41 → TELE3 07-15 21:36
PROVIDERS: ADMIT Nurse Practitioner Family; ATTEND Nurse Practitioner Family
DX: A41.89 Other specified sepsis (principal); E43 Unspecified severe protein-calorie malnutrition; J18.9 Pneumonia, unspecified organism; R65.21 Severe sepsis with septic shock; J96.01 Acute respiratory failure with hypoxia; J69.0 Pneumonitis due to inhalation of food and vomit; N17.0 Acute kidney failure with tubular necrosis; G92.8 Other toxic encephalopathy; I50.31 Acute diastolic (congestive) heart failure; C78.02 Secondary malignant neoplasm of left lung; C78.01 Secondary malignant neoplasm of right lung; N39.0 Urinary tract infection, site not specified; C79.51 Secondary malignant neoplasm of bone; C79.70 Secondary malignant neoplasm of unspecified adrenal gland; E87.1 Hypo-osmolality and hyponatremia; E87.20 Acidosis, unspecified; R17 Unspecified jaundice; K92.2 Gastrointestinal hemorrhage, unspecified; J44.0 Chronic obstructive pulmonary disease with (acute) lower respiratory infection; Z85.01 Personal history of malignant neoplasm of esophagus; Z86.711 Personal history of pulmonary embolism; Z79.01 Long term (current) use of anticoagulants; Z90.49 Acquired absence of other specified parts of digestive tract; B96.89 Other specified bacterial agents as the cause of diseases classified elsewhere; E11.65 Type 2 diabetes mellitus with hyperglycemia; Z68.25 Body mass index [BMI] 25.0-25.9, adult; D50.9 Iron deficiency anemia, unspecified; N40.0 Benign prostatic hyperplasia without lower urinary tract symptoms; M89.8X9 Other specified disorders of bone, unspecified site; K21.9 Gastro-esophageal reflux disease without esophagitis; R13.10 Dysphagia, unspecified; E88.09 Other disorders of plasma-protein metabolism, not elsewhere classified; T38.0X5A Adverse effect of glucocorticoids and synthetic analogues, initial encounter; Z95.828 Presence of other vascular implants and grafts; E83.42 Hypomagnesemia
CPT/HCPCS: 36415; 71045; 76770; 82533; 83550; 83605; 83735; 83970; 84100; 84155; 84165; 84300; 84443; 84484; 85025; 86705; 86708; 86709; 87040; 87340; 87350; 93005; 93307; 94760; A4606; A4663; G0378; J0696; J1650; J1720; J1815; J1940; J2185; J2405; J2543; J2916; J3370; J3475; J3490; J3590; J7040; J7050; Q0162

== ENCOUNTER 2023-07-23 09:30 | Inpatient (IN) | payer MEDICARE, BC ==
[~2023-07-23] VITALS: Ht 180.3 cm; Wt 80.5 kg
[~2023-07-23 09:30] MED LIST changes: -ALBU18HF2 INH; +ALPR0.255 PO; +APIX2.5T PO; -APIX5TAB PO; +BUPR-96 PO; -DICY20TA11 PO; +DOXY100T2 PO; -ESCI-9 PO; +ESCI20TA PO; +GABA-532 PO; -LORA0.5T48 PO; +METH4TAB3 PO; -OLAN2.5T3 PO; +ONDA4TAB11 SL; -ONDA8TAB65 PO; -PRED20TA PO; -SULF1TAB48 PO; +TAMS-3 PO
[2023-07-23] MEDS ORDERED: TOPAMAX (09:48)
[2023-07-23] MEDS ORDERED: ATIVAN (09:48)
[2023-07-23] MEDS ORDERED: ONDANSETRON 4 MG/2 ML VIAL ONE (10:00)
[2023-07-23] MEDS: ONDANSETRON 4 MG/2 ML VIAL IV ONE (10:18)
[2023-07-23] MEDS: IV NORMAL SALINE 1000 ML BAG IV ONE (10:19)
[2023-07-23 10:34] LABS: HEMATOCRIT 39.9 % (36.7-47.1); HEMOGLOBIN 12.6 g/dL (12.5-16.3); MEAN CORPUSCULAR HEMOGLOBIN 25.2 uug (23.8-33.4); MONOCYTES # (AUTO) 1.2 K/uL (0.1-1.30)
[2023-07-23 10:36] LABS: CALCIUM 9.5 mg/dL (8.5-10.1); CARBON DIOXIDE 27 mmol/L (21-32); CHLORIDE 90 mmol/L (98-107); CREATININE 1.3 mg/dL (0.6-1.3); POTASSIUM 5.1 mmol/L (3.5-5.1); SODIUM SERUM 126 mmol/L (136-145); UREA NITROGEN, BLOOD 43 mg/dL (7-18)
[2023-07-23 10:39] LABS: BASOPHILS # (AUTO) 0.1 K/UL (0.0-0.2); BASOPHILS % (AUTO) 0.3 % (0.0-2.0); EOSINOPHILS % (AUTO) 0.1 % (0.0-7.0); GLUCOSE 642 mg/dL (74-106); LYMPHOCYTES % (AUTO) 4.6 % (20.5-51.5); MEAN CORPUSCULAR HGB CONC 32 g/dL (32.5-36.3); MEAN CORPUSCULAR VOLUME 79.8 fL (73.0-96.2); MONOCYTES % (AUTO) 5.3 % (0.0-11.0); NEUTROPHILS # (AUTO) 20.1 K/uL (1.8-8.9); NEUTROPHILS % (AUTO) 89.7 % (38.5-71.5); PLATELET COUNT (AUTO) 480 K/uL (152-348); RED CELL DISTRIBUTION WIDTH 17.8 % (12.1-16.2); WHITE BLOOD COUNT (AUTO) 22.4 K/uL (3.6-10.2)
[2023-07-23 10:40] LABS: DIFFERENTIAL COMMENT 1
[2023-07-23 10:45] LABS: *BILIRUBIN,URIN NEGATIVE (NEGATIVE); *BLOOD, URINE NEGATIVE (NEGATIVE); *CLARITY,URINE CLEAR (CLEAR); *COLOR,URINE YELLOW (YELLOW); *KETONES,URINE NEGATIVE (NEGATIVE); *PROTEIN,URINE NEGATIVE (NEGATIVE); *UROBILINOGEN,URINE 0.2 E.U./dl (NORMAL); LEUKOCYTE ESTERASE ,URINE NEGATIVE (NEGATIVE); NITRITE, URINE NEGATIVE (NEGATIVE); PH,URINE 5.5 (5.0-8.0); UGLUCOSE 3+ (NEGATIVE)
[2023-07-23 10:46] LABS: ALANINE AMINOTRANSFERASE 16 U/L (16-63); ALBUMIN 2.9 g/dL (3.4-5.0); ALKALINE PHOSPHATASE 183 U/L (50-136); ASPARTATE AMINOTRANSFERASE < 5 U/L (15-37); BILIRUBIN,DIRECT 0.2 mg/dL (0.0-0.2); BILIRUBIN,TOTAL 0.7 mg/dL (0.2-1.0); NT-PRO BNP 277 pg/mL (0-125); TOTAL PROTEIN, SERUM 8.3 g/dL (6.4-8.2)
[2023-07-23 10:47] LABS: LACTIC ACID 2.5 mmol/L (0.4-2.0)
[2023-07-23] MEDS: INSULIN REGULAR, HUMAN 300 UNIT/3 ML VIAL IV ONE (10:49)
[2023-07-23] MEDS ORDERED: INSULIN LISPRO 300 UNIT/3 ML VIAL SQ ONE (10:51)
[2023-07-23] MEDS ORDERED: TRAM50TA2 PO (10:56)
[2023-07-23] MEDS: INSULIN REGULAR, HUMAN 100 UNIT in IV NORMAL SALINE 99 ML IV PRN ×2 (11:12→11:20)
[2023-07-23] MEDS ORDERED: CEFTRIAXONE /D5W 50ML IVPB **ER PYXIS IV ONE (11:14)
[2023-07-23] MEDS ORDERED: ALPRAZOLAM 0.25 MG TABLET PO PRN (11:15)
[2023-07-23] MEDS ORDERED: TRAMADOL HCL 50 MG TABLET PO PRN (11:15)
[2023-07-23] MEDS ORDERED: ONDANSETRON 4 MG/2 ML VIAL IV PRN (11:15)
[2023-07-23] MEDS ORDERED: MAGNESIUM HYDROXIDE 30 ML LIQUID UDC PO PRN (11:15)
[2023-07-23] MEDS ORDERED: REMEDY ESSENTIAL ZINC PASTE 113 GM TP PRN (11:15)
[2023-07-23] MEDS ORDERED: DEXTROSE 50% 50 ML DISP.SYRIN IV PRN (11:15)
[2023-07-23] MEDS ORDERED: ACETAMINOPHEN 325 MG TABLET PO PRN (11:15)
[2023-07-23] MEDS ORDERED: GABAPENTIN 100 MG CAPSULE PO PRN (11:15)
[2023-07-23] MEDS: CEFTRIAXONE 1 G in IV DEXTROSE 5% 50 ML IV STA (11:27)
[2023-07-23 11:31] LABS: BACTERIA,URINE NONE SEEN /HPF (NONE SEEN); RBC,URINE NONE SEEN /HPF (0-3); SQUAMOUS EPITHELIAL CELL,UR FEW /HPF (NONE SEEN); WBC,URINE 0-3 /HPF (0-3)
[2023-07-23] MEDS: IV NS 1000 ML 1,000 ML IV PRN (11:31)
[2023-07-23] MEDS: BLOOD SUGAR DIAGNOSTIC 1 EACH STRIP VI SCH ×2 (11:56→12:00)
[2023-07-23] MEDS ORDERED: PIPERACILLIN/TAZOBACTAM/D5W 50 ML IV ONE (13:34)
[2023-07-23] MEDS: PIPERACILLIN SODIUM/TAZOBACTAM 3.375 G in IV DEXTROSE 5% 100 ML IV SCH (14:04)
[2023-07-23] MEDS: IV 0.9% SODIUM CHLORID+ 20 KCL 1,000 ML IV ONE (14:04)
[2023-07-23] MEDS ORDERED: IV D5W-0.45% NS 1000 ML BAG IV PRN (14:15)
[2023-07-23] MEDS: IV D5 1/2 NS 1000 ML 1,000 ML IV PRN (14:32)
[2023-07-23] MEDS ORDERED: VANCOMYCIN IV 200 ML ONE (14:37)
[2023-07-23] MEDS: VANCOMYCIN IV 1,000 MG in IV DEXTROSE 5% 250 ML IV ONE (14:44)
[2023-07-23 15:21] LABS: CREATININE 0.8 mg/dL (0.6-1.3); POTASSIUM 4.3 mmol/L (3.5-5.1)
[2023-07-23] MEDS ORDERED: PIPERACILLIN SODIUM/TAZOBACTAM 3.375 G in IV DEXTROSE 5% 50 ML IV SCH (18:00)
[2023-07-23] MEDS: FAMOTIDINE 20 MG TABLET PO SCH (21:15)
[2023-07-23] MEDS: TAMSULOSIN HCL 0.4 MG CAP.SR.24H PO SCH (21:15)
[2023-07-23] MEDS ORDERED: TAMSULOSIN HCL 0.4 MG CAP.SR.24H ONE (21:18)
[2023-07-23] MEDS ORDERED: FAMOTIDINE 20 MG TABLET ONE (21:18)
[2023-07-23] MEDS: APIXABAN 2.5 MG TABLET PO SCH (21:50)
[2023-07-23] MEDS ORDERED: INSULIN GLARGINE,HUM 300 UNITS/3 ML CARTRIDGE SQ ONE (23:21)
[2023-07-23] MEDS: INSULIN GLARGINE,HUM 300 UNITS/3 ML CARTRIDGE SQ SCH (23:29)
[2023-07-24] MEDS ORDERED: INSULIN REGULAR, HUMAN 300 UNIT/3 ML VIAL SQ PRN (06:15)
[2023-07-24] MEDS ORDERED: DEXTROSE 50% 50 ML DISP.SYRIN IV PRN ×3 (06:15→08:00)
[2023-07-24] MEDS ORDERED: INSULIN REGULAR, HUMAN 300 UNITS/3 ML VIAL SQ PRN (06:15)
[2023-07-24] MEDS: BLOOD SUGAR DIAGNOSTIC 1 EACH STRIP VI SCH ×2 (06:33→12:17)
[2023-07-24] MEDS: INSULIN REGULAR, HUMAN 300 UNIT/3 ML VIAL SQ PRN ×2 (06:56→12:18)
[2023-07-24 07:22] LABS: BASOPHILS # (AUTO) 0.1 K/UL (0.0-0.2); BASOPHILS % (AUTO) 0.4 % (0.0-2.0); EOSINOPHILS # (AUTO) 0.1 K/uL (0.0-0.7); EOSINOPHILS % (AUTO) 0.6 % (0.0-7.0); HEMOGLOBIN 9.6 g/dL (12.5-16.3); LYMPHOCYTES # (AUTO) 0.7 K/uL (0.8-4.8); LYMPHOCYTES % (AUTO) 4.9 % (20.5-51.5); MEAN CORPUSCULAR HEMOGLOBIN 25.3 uug (23.8-33.4); MEAN CORPUSCULAR HGB CONC 32 g/dL (32.5-36.3); MEAN CORPUSCULAR VOLUME 78.8 fL (73.0-96.2); MONOCYTES # (AUTO) 0.9 K/uL (0.1-1.30); MONOCYTES % (AUTO) 6.5 % (0.0-11.0); NEUTROPHILS # (AUTO) 12.3 K/uL (1.8-8.9); NEUTROPHILS % (AUTO) 87.6 % (38.5-71.5); PLATELET COUNT (AUTO) 315 K/uL (152-348); RED BLOOD CELL COUNT(AUTO) 3.81 MIL/uL (4.06-5.63); RED CELL DISTRIBUTION WIDTH 17.1 % (12.1-16.2)
[2023-07-24 07:30] LABS: DIFFERENTIAL COMMENT 1
[2023-07-24] MEDS ORDERED: BLOOD SUGAR DIAGNOSTIC 1 EACH STRIP VI SCH (07:30)
[2023-07-24 07:36] LABS: CALCIUM 7.8 mg/dL (8.5-10.1); CREATININE 0.7 mg/dL (0.6-1.3); MAGNESIUM 1.7 mg/dL (1.8-2.4); PHOSPHOROUS 2.7 mg/dL (2.5-4.9); POTASSIUM 4.5 mmol/L (3.5-5.1); VANCOMYCIN,RANDOM 3.6 ug/mL (20.0-30.0)
[2023-07-24 08:04] VITALS: BP 127/68; TEMP 98; O2SAT 94
[2023-07-24] MEDS: buPROPion XL 150 MG TAB.SR.24H PO SCH (08:33)
[2023-07-24] MEDS: PANTOPRAZOLE SODIUM 40 MG VIAL IV SCH (08:33)
[2023-07-24] MEDS ORDERED: PANTOPRAZOLE SODIUM 40 MG TABLET.DR PO SCH (09:00)
[2023-07-24] MEDS ORDERED: Medication Not On Formulary EA (Escitalopram Oxalate (Lexapro) 20 MG) PO SCH (09:00)
[2023-07-24 11:49] VITALS: BP 122/78; TEMP 98; O2SAT 97
[2023-07-24] MEDS: ESCITALOPRAM OXALATE 10 MG TABLET PO SCH (12:16)
[2023-07-24] MEDS: MAGNESIUM OXIDE 400 MG TABLET PO ONE (13:12)
[2023-07-24 15:26] LABS: CALCIUM 8.2 mg/dL (8.5-10.1); CREATININE 0.7 mg/dL (0.6-1.3); POTASSIUM 4.2 mmol/L (3.5-5.1)
[2023-07-24 16:30] VITALS: BP 119/76; TEMP 98.4; O2SAT 95
[2023-07-24] MEDS: VANCOMYCIN IV 1,000 MG in IV DEXTROSE 5% 250 ML IV SCH (17:37)
[2023-07-24] MEDS: [UNRECOGNIZED DRUG - OTHER] JT PRN (17:42)
[2023-07-24 20:00] VITALS: BP 121/76; TEMP 98.3; O2SAT 94
[2023-07-24] MEDS ORDERED: ONDANSETRON 4 MG/2 ML VIAL MC SCH (20:00)
[2023-07-24] MEDS: ONDANSETRON ODT 4 MG TAB.RAPDIS SL SCH (20:56)
[2023-07-24] MEDS: INSULIN GLARGINE,HUM 300 UNITS/3 ML CARTRIDGE SQ SCH (21:07)
[2023-07-24 23:36] VITALS: BP 122/69; TEMP 98.2; O2SAT 95
[2023-07-25 06:06] VITALS: BP 144/81; TEMP 99.2; O2SAT 93
[2023-07-25 07:24] LABS: BASOPHILS # (AUTO) 0.1 K/UL (0.0-0.2); BASOPHILS % (AUTO) 0.5 % (0.0-2.0); EOSINOPHILS # (AUTO) 0.1 K/uL (0.0-0.7); EOSINOPHILS % (AUTO) 0.5 % (0.0-7.0); HEMATOCRIT 31.9 % (36.7-47.1); HEMOGLOBIN 10.5 g/dL (12.5-16.3); LYMPHOCYTES # (AUTO) 0.7 K/uL (0.8-4.8); LYMPHOCYTES % (AUTO) 5.3 % (20.5-51.5); MEAN CORPUSCULAR HEMOGLOBIN 25.6 uug (23.8-33.4); MEAN CORPUSCULAR HGB CONC 33 g/dL (32.5-36.3); MEAN CORPUSCULAR VOLUME 77.8 fL (73.0-96.2); MONOCYTES # (AUTO) 1.1 K/uL (0.1-1.30); MONOCYTES % (AUTO) 8.5 % (0.0-11.0); NEUTROPHILS # (AUTO) 11.3 K/uL (1.8-8.9); NEUTROPHILS % (AUTO) 85.2 % (38.5-71.5); PLATELET COUNT (AUTO) 311 K/uL (152-348); RED BLOOD CELL COUNT(AUTO) 4.11 MIL/uL (4.06-5.63); RED CELL DISTRIBUTION WIDTH 17.7 % (12.1-16.2); WHITE BLOOD COUNT (AUTO) 13.2 K/uL (3.6-10.2)
[2023-07-25 07:34] VITALS: BP 115/78; TEMP 97.7; O2SAT 92
[2023-07-25 07:46] LABS: CALCIUM 8.2 mg/dL (8.5-10.1); CREATININE 0.7 mg/dL (0.6-1.3); MAGNESIUM 1.7 mg/dL (1.8-2.4); PHOSPHOROUS 2.8 mg/dL (2.5-4.9); POTASSIUM 4.3 mmol/L (3.5-5.1); URIC ACID 2.1 mg/dL (3.5-7.2)
[2023-07-25 07:48] LABS: DIFFERENTIAL COMMENT 1
[2023-07-25 07:52] LABS: THYROID STIMULATING HORMONE 2.253 mIU/mL (0.358-3.740)
[2023-07-25] MEDS: MAGNESIUM SULFATE/D5W 100 ML IV SCH (10:05)
[2023-07-25] MEDS ORDERED: ACETAMINOPHEN 650 MG SUPP.RECT RC PRN (11:00)
[2023-07-25] MEDS ORDERED: DEXTROSE 50% 50 ML DISP.SYRIN IV PRN (11:00)
[2023-07-25] MEDS: ONDANSETRON 4 MG/2 ML VIAL IV PRN (11:19)
[2023-07-25] MEDS: PANTOPRAZOLE SODIUM 40 MG VIAL IV SCH (11:19)
[2023-07-25 11:40] VITALS: BP 126/70; TEMP 98.5; O2SAT 95
[2023-07-25] MEDS: BLOOD SUGAR DIAGNOSTIC 1 EACH STRIP VI SCH (12:06)
[2023-07-25] MEDS: INSULIN REGULAR, HUMAN 300 UNIT/3 ML VIAL SQ PRN (12:09)
[2023-07-25] MEDS: IV D5/ 0.9% NACL 1,000 ML IV PRN (12:12)
[2023-07-25] MEDS ORDERED: SWABABLE VALVE TRANSFER SET EA MC ONE (14:26)
[2023-07-25] MEDS ORDERED: IOHEXOL 300MG/ML 100 ML INFUS..BTL ONE (14:26)
[2023-07-25] MEDS ORDERED: IV NORMAL SALINE 250 ML IV ONE (14:26)
[2023-07-25 15:40] VITALS: BP 130/77; TEMP 97.8; O2SAT 95
[2023-07-25] MEDS ORDERED: ALPRAZOLAM 0.25 MG TABLET PO PRN (20:00)
[2023-07-25] MEDS ORDERED: TRAMADOL HCL 50 MG TABLET PO PRN (20:00)
[2023-07-25 20:50] VITALS: BP 104/73; TEMP 98.5; O2SAT 92
[2023-07-25] MEDS: TAMSULOSIN HCL 0.4 MG CAP.SR.24H PO SCH (21:12)
[2023-07-25] MEDS: PROTEIN SUPPLEMENT (PROSTAT) 30 ML LIQUID JT SCH (23:00)
[2023-07-25 23:39] LABS: IRON, SERUM 11 ug/dL (50-175)
[2023-07-26 06:41] LABS: BASOPHILS # (AUTO) 0.1 K/UL (0.0-0.2); BASOPHILS % (AUTO) 0.8 % (0.0-2.0); EOSINOPHILS # (AUTO) 0.1 K/uL (0.0-0.7); HEMATOCRIT 32.7 % (36.7-47.1); HEMOGLOBIN 10.5 g/dL (12.5-16.3); LYMPHOCYTES # (AUTO) 0.5 K/uL (0.8-4.8); LYMPHOCYTES % (AUTO) 5.4 % (20.5-51.5); MEAN CORPUSCULAR HGB CONC 32 g/dL (32.5-36.3); MEAN CORPUSCULAR VOLUME 77.4 fL (73.0-96.2); MONOCYTES # (AUTO) 0.9 K/uL (0.1-1.30); MONOCYTES % (AUTO) 9.2 % (0.0-11.0); NEUTROPHILS # (AUTO) 8.3 K/uL (1.8-8.9); NEUTROPHILS % (AUTO) 83.6 % (38.5-71.5); PLATELET COUNT (AUTO) 312 K/uL (152-348); RED BLOOD CELL COUNT(AUTO) 4.22 MIL/uL (4.06-5.63); RED CELL DISTRIBUTION WIDTH 17.7 % (12.1-16.2); WHITE BLOOD COUNT (AUTO) 9.9 K/uL (3.6-10.2)
[2023-07-26] MEDS ORDERED: ALPRAZOLAM 0.25 MG TABLET JT PRN (06:41)
[2023-07-26] MEDS ORDERED: TRAMADOL HCL 50 MG TABLET JT PRN (06:41)
[2023-07-26] MEDS ORDERED: PANTOPRAZOLE SODIUM 40 MG TABLET.DR PO SCH (07:00)
[2023-07-26 07:36] LABS: DIFFERENTIAL COMMENT 1
[2023-07-26 08:00] VITALS: BP 105/65; TEMP 97.6; O2SAT 97
[2023-07-26 08:02] LABS: BILIRUBIN,TOTAL 0.6 mg/dL (0.2-1.0); CALCIUM 8.3 mg/dL (8.5-10.1); CREATININE 0.7 mg/dL (0.6-1.3); PHOSPHOROUS 3.9 mg/dL (2.5-4.9); POTASSIUM 4.1 mmol/L (3.5-5.1); TOTAL PROTEIN, SERUM 6.5 g/dL (6.4-8.2)
[2023-07-26] MEDS: ESCITALOPRAM OXALATE 10 MG TABLET JT SCH (08:04)
[2023-07-26] MEDS ORDERED: buPROPion XL 150 MG TAB.SR.24H PO SCH (09:00)
[2023-07-26 12:00] VITALS: BP 106/68; TEMP 97.6; O2SAT 97
[2023-07-26] MEDS: VITAL AF 1.2 1,000 ML LIQUID JT PRN (12:16)
[2023-07-26] MEDS ORDERED: ALPRAZOLAM 0.25 MG TABLET PO PRN (12:45)
[2023-07-26] MEDS ORDERED: ESCITALOPRAM OXALATE 10 MG TABLET PO SCH (12:45)
[2023-07-26] MEDS ORDERED: TRAMADOL HCL 50 MG TABLET PO PRN (12:46)
[2023-07-26] MEDS: buPROPion XL 150 MG TAB.SR.24H PO SCH (13:12)
[2023-07-26 16:00] VITALS: BP 107/64; TEMP 97.6; O2SAT 97
[2023-07-26 20:00] VITALS: BP 111/64; TEMP 97.6; O2SAT 98
[2023-07-27 00:34] VITALS: BP 115/70; TEMP 98.2; O2SAT 94
[2023-07-27 04:17] VITALS: BP 114/72; TEMP 97.4; O2SAT 94
[2023-07-27 06:55] LABS: BASOPHILS % (AUTO) 0.6 % (0.0-2.0); EOSINOPHILS # (AUTO) 0.1 K/uL (0.0-0.7); EOSINOPHILS % (AUTO) 0.9 % (0.0-7.0); HEMATOCRIT 30.9 % (36.7-47.1); HEMOGLOBIN 10.2 g/dL (12.5-16.3); LYMPHOCYTES # (AUTO) 0.6 K/uL (0.8-4.8); MEAN CORPUSCULAR HEMOGLOBIN 25.6 uug (23.8-33.4); MEAN CORPUSCULAR HGB CONC 33 g/dL (32.5-36.3); MEAN CORPUSCULAR VOLUME 77.2 fL (73.0-96.2); MONOCYTES # (AUTO) 0.6 K/uL (0.1-1.30); MONOCYTES % (AUTO) 7.5 % (0.0-11.0); NEUTROPHILS # (AUTO) 6.9 K/uL (1.8-8.9); PLATELET COUNT (AUTO) 370 K/uL (152-348); RED CELL DISTRIBUTION WIDTH 17.5 % (12.1-16.2); WHITE BLOOD COUNT (AUTO) 8.3 K/uL (3.6-10.2)
[2023-07-27 07:04] LABS: DIFFERENTIAL COMMENT 1
[2023-07-27 07:09] LABS: CALCIUM 8.3 mg/dL (8.5-10.1); CREATININE 0.7 mg/dL (0.6-1.3); MAGNESIUM 2.1 mg/dL (1.8-2.4); PHOSPHOROUS 3.8 mg/dL (2.5-4.9)
[2023-07-27 07:50] VITALS: BP 118/71; TEMP 98.2; O2SAT 97
[2023-07-27] MEDS: ESCITALOPRAM OXALATE 10 MG TABLET PO SCH (08:29)
[2023-07-27 11:43] VITALS: BP 106/66; TEMP 97.9; O2SAT 97
[2023-07-27 15:40] VITALS: BP 116/66; TEMP 97.8; O2SAT 97
[2023-07-27] MEDS: PANTOPRAZOLE SODIUM 40 MG TABLET.DR PO SCH (16:53)
[2023-07-27] MEDS: FUROSEMIDE 20 MG/2 ML VIAL IV ONE (18:06)
[2023-07-27] MEDS: SOD FERRIC GLUC COMPLX/SUCROSE 125 MG in IV NORMAL SALINE 100 ML IV ONE (18:22)
[2023-07-27 20:38] VITALS: BP 104/63; TEMP 98; O2SAT 96
[2023-07-27] MEDS: glipiZIDE 5 MG TABLET JT SCH (21:11)
[2023-07-28 00:20] VITALS: BP 131/83; TEMP 97.9; O2SAT 96
[2023-07-28 03:32] VITALS: BP 114/71; TEMP 97.9; O2SAT 94
[2023-07-28 07:49] VITALS: BP 121/77; TEMP 97.8; O2SAT 96
[2023-07-28 12:01] VITALS: BP 117/69; TEMP 97.7; O2SAT 97
[2023-07-28 15:40] VITALS: BP 116/72; TEMP 97.8; O2SAT 96
[2023-07-28] MEDS ORDERED: GLIP5TAB13 JT (15:59)
[2023-07-28] MEDS ORDERED: AMOX-430 PO (15:59)
== END 2023-07-28 17:15 | disposition home or self-care (01) | DRG 637 ==
LOC: ER 09:31 → UNDOADMIN 11:58 → CCU 11:58 → TRANSITION 11:58 → TELE3 07-24 01:57
PROVIDERS: ADMIT Nurse Practitioner Acute Care; ATTEND Nurse Practitioner Acute Care
DX: E11.65 Type 2 diabetes mellitus with hyperglycemia (principal); A41.9 Sepsis, unspecified organism; N17.0 Acute kidney failure with tubular necrosis; J96.01 Acute respiratory failure with hypoxia; G92.8 Other toxic encephalopathy; I50.31 Acute diastolic (congestive) heart failure; J69.0 Pneumonitis due to inhalation of food and vomit; E43 Unspecified severe protein-calorie malnutrition; C15.9 Malignant neoplasm of esophagus, unspecified; C79.51 Secondary malignant neoplasm of bone; C78.02 Secondary malignant neoplasm of left lung; C78.01 Secondary malignant neoplasm of right lung; C79.72 Secondary malignant neoplasm of left adrenal gland; C79.71 Secondary malignant neoplasm of right adrenal gland; C78.7 Secondary malignant neoplasm of liver and intrahepatic bile duct; K92.0 Hematemesis; E87.1 Hypo-osmolality and hyponatremia; E87.20 Acidosis, unspecified; T38.0X5A Adverse effect of glucocorticoids and synthetic analogues, initial encounter; R13.10 Dysphagia, unspecified; N40.0 Benign prostatic hyperplasia without lower urinary tract symptoms; E88.09 Other disorders of plasma-protein metabolism, not elsewhere classified; I11.0 Hypertensive heart disease with heart failure; R62.7 Adult failure to thrive; E86.1 Hypovolemia; E78.5 Hyperlipidemia, unspecified; K21.9 Gastro-esophageal reflux disease without esophagitis; D50.9 Iron deficiency anemia, unspecified; Z87.01 Personal history of pneumonia (recurrent); Z86.711 Personal history of pulmonary embolism; Z79.01 Long term (current) use of anticoagulants; Z93.4 Other artificial openings of gastrointestinal tract status; Z79.899 Other long term (current) drug therapy
CPT/HCPCS: 36415; 71045; 71260; 82533; 82652; 83550; 83605; 83735; 84100; 84443; 84550; 85025; 85730; 87040; 93005; A4606; A4663; C9113; G0378; J0696; J1815; J1940; J2405; J2543; J2916; J3370; J3475; J7040; J7042; J7050; Q0162; Q9967